=== PATIENT | female | born 1985 | race Hispanic/Latino ===

== ENCOUNTER 2018-06-12 09:43 | Emergency (ER) | payer OTHER ==
[2018-06-12 09:47] VITALS: BMI 29.7
[2018-06-12 09:50] VITALS: TEMP 98; O2SAT 99
--- NOTE | 2018-06-12 10:20 | ED PDOC ---
Arrival/HPI - General Chief Complaint: Lower Extremity Problem/Injury Time Seen by Provider: 06/12/18 09:53 Historian: Patient - History of Present Illness Narrative History of Present Illness (Text): 06/12/18 10:22 A 32 year old male, with no significant past medical history, presents to the emergency department complaining of left leg pain for the past 3 days. Patient reports she assumed she slept wrong or pulled a muscle in her left calf. However, 2 days ago after pain began, it became worse and she was unable to ambulate, resulting in calling out of work and remaining home. Yesterday, patient remained in bed all day, due to being unable to remain standing as the pain worsens when doing so. Last night, left leg pain has become unbearable for patient, describing pain as "knives and cramps." Patient was unable to sleep. Patient began concerned and decided to come to the ER to be evaluated. Patient notes also having 2 episodes of diarrhea yesterday, however denies any fever, chills, nausea, vomiting, abdominal pain, chest pain, or any other complaints at this time. Denies any recent travel, only commutes from [place] to [place]. PMD: Dr. Arnold Leavitt Time/Duration: < week (3 days) Past Medical History - Provider Review Nursing Documentation Reviewed: Yes - Infectious Disease Hx of Infectious Diseases: None - Reproductive Menopause: No - Past Medical History Past Medical History: No Previous - Renal Hx Kidney Stones: Yes (8 years ago) - Musculoskeletal/Rheumatological Hx Falls: No - Psychiatric Hx Depression: No Hx Emotional Abuse: No Hx Physical Abuse: No Hx Substance Use: No - Past Surgical History Past Surgical History: No Previous - Suicidal Assessment Feels Threatened In Home Enviroment: No Family/Social History - Physician Review Nursing Documentation Reviewed: Yes Family/Social History: No Known Family HX Smoking Status: Never Smoked Hx Alcohol Use: Yes (social) Hx Substance Use: No Hx Substance Use Treatment: No Allergies/Home Meds Allergies/Adverse Reactions: Allergies No Known Allergies Allergy (Verified 04/30/18 18:32) Home Medications: Home Meds Medication Instructions Recorded Confirmed oxyCODONE [oxyCODONE Immediate 5 mg PO DAILY PRN 04/30/18 04/30/18 Release Tab] Review of Systems - Physician Review All systems were reviewed & negative as marked: Yes - Review of Systems Constitutional: absent: Fevers, Night Sweats Respiratory: absent: Cough Cardiovascular: absent: Chest Pain Gastrointestinal: Diarrhea (2 episodes yesterday). absent: Abdominal Pain, Nausea, Vomiting Musculoskeletal: Other (left leg pain.) Physical Exam Vital Signs Reviewed: Yes Vital Signs Temp Pulse Resp BP Pulse Ox 06/12/18 09:47 98.0 F 100 H 20 118/74 99 Temperature: Afebrile Blood Pressure: Normal Pulse: Regular Respiratory Rate: Normal Appearance: Positive for: Well-Appearing, Non-Toxic, Comfortable Pain Distress: None Mental Status: Positive for: Alert and Oriented X 3 - Systems Exam Head: Present: Atraumatic, Normocephalic Pupils: Present: PERRL Extroacular Muscles: Present: EOMI Conjunctiva: Present: Normal Mouth: Present: Moist Mucous Membranes Neck: Present: Normal Range of Motion Respiratory/Chest: Present: Clear to Auscultation, Good Air Exchange. No: Respiratory Distress, Accessory Muscle Use Cardiovascular: Present: Regular Rate and Rhythm, Normal S1, S2. No: Murmurs Abdomen: No: Tenderness, Distention, Peritoneal Signs Back: Present: Normal Inspection Upper Extremity: Present: Normal Inspection. No: Cyanosis, Edema Lower Extremity: Present: Normal Inspection, NORMAL PULSES. No: Edema, CALF TENDERNESS, Swelling, Erythema Neurological: Present: GCS=15, CN II-XII Intact, Speech Normal Skin: Present: Warm, Dry, Normal Color. No: Rashes Psychiatric: Present: Alert, Oriented x 3, Normal Insight, Normal Concentration Medical Decision Making ED Course and Treatment: 06/12/18 10:25 Impression: 32 year old female with left leg pain. No acute findings on physical exam. Plan: -- Lower Extremity ultrasound -- Labs -- POC Urine Test -- Reassess and disposition Prior Visits: Notes and results from previous visits were reviewed. Patient was last seen in the emergency department on 04/30/2018 for severe right flank pain that radiates to her right pelvic area. Patient was admitted for Ureterolithiasis. Progress Notes: 06/12/2018 11:05 Lower Extremity Ultrasound IMPRESSION: 1. No sonographic evidence for deep venous thrombosis in the visualized segments of the left lower extremity. Dictator: Tam Eagle MD 06/12/18 11:29 Results discussed with patient. Electrolytes and magnesium levels are normal. US is negative for DVT. Patient instructed to follow-up with PCP and to take Motrin. Patient's states she was using warm compresses before and they helped. - Lab Interpretations I have reviewed the lab results: Yes - RAD Interpretation Radiology Orders: 06/12/18 10:15 DUPLEX LOWER EXTRM VEIN LEFT [US] Stat - Scribe Statement The provider has reviewed the documentation as recorded by the Gabiibzafar Snider Provider Scribe Attestation: All medical record entries made by the Scribe were at my direction and personally dictated by me. I have reviewed the chart and agree that the record accurately reflects my personal performance of the history, physical exam, medical decision making, and the department course for this patient. I have also personally directed, reviewed, and agree with the discharge instructions and disposition. Disposition/Present on Arrival - Present on Arrival Any Indicators Present on Arrival: No History of DVT/PE: No History of Uncontrolled Diabetes: No Urinary Catheter: No History of Decub. Ulcer: No History Surgical Site Infection Following: None - Disposition Have Diagnosis and Disposition been Completed?: Yes Diagnosis: Musculoskeletal pain of left lower extremity Disposition: HOME/ ROUTINE Disposition Time: 11:35 Patient Plan: Discharge Condition: GOOD Discharge Instructions (ExitCare): Muscle and Bone Pain (DC) Additional Instructions: CAITLIN WOODS, thank you for letting us take care of you today. Your provider was Karina Allen MD and you were treated for STRONG PAIN IN LEFT LEG. The emergency medical care you received today was directed at your acute symptoms. If you were prescribed any medication, please fill it and take as directed. It may take several days for your symptoms to resolve. Return to the Emergency Department if your symptoms worsen, do not improve, or if you have any other problems. Please contact your doctor for a follow up appointment in 1 day.t. Bring any paperwork you were given at discharge with you along with any medications you are taking to your follow up visit. Our treatment cannot replace ongoing medical care by a primary care provider outside of the emergency department. Thank you for allowing the [facility] team to be part of your care today. Forms: [employer] ([place]), WORK NOTE
[2018-06-12 10:47] LABS: BLOOD UREA NITROGEN 13 mg/dL (7-21); CALCIUM 9.3 mg/dL (8.4-10.5); GFR NON-AFRICAN AMERICAN > 60
--- NOTE | 2018-06-12 11:09 | US ---
PROCEDURE: Left lower extremity venous US HISTORY: Leg pain and swelling. Evaluate for DVT. PHYSICIAN(S): Tam Eagle MD. TECHNIQUE: Duplex sonography and color-flow Doppler with graded compression were used to evaluate the deep venous system of the left lower extremity. FINDINGS: The visualized deep venous system of the left lower extremity is sonographically normal and compressible. Normal wave forms and augmentation are seen. There is no sonographic evidence for deep venous thrombosis in the visualized segments of the left lower extremity. IMPRESSION: 1. No sonographic evidence for deep venous thrombosis in the visualized segments of the left lower extremity.
[2018-06-12 12:08] VITALS: BP 121/75; PULSE 88; RESP 18
== END 2018-06-12 12:10 | disposition home or self-care (01) ==
LOC: ED 09:43
DX: M79.605 Pain in left leg (principal)